=== PATIENT | female | born 1975 | race Caucasian/White ===

== ENCOUNTER 2025-06-11 12:58 | Inpatient (IN) ==
--- NOTE | 2025-06-11 14:36 | Emergency Department Note ---
History of Present Illness General Chief complaint: Leg Injury/Pain Stated complaint: L LEG SWELLING/POSSIBLY INFECTED Time Seen by Provider: 06/11/25 14:20 History of Present Illness Maximum Pain Intensity: 5 This is a 49-year-old female with a history of diabetes that presents to the emergency department via private vehicle with complaints of "left leg swollen, infection". The patient notes that for the past few days she has noted a wound to the left lateral ankle. She believes this developed after wearing new boots. She noted progressive swelling and redness to the area. Minimal pain. She denies any definitive trauma or injury. No fevers or chills. No nausea or vomiting. The patient notes that secondary to lack of medical insurance, she has not been able to take her medication. Home Medications Medication Instructions Recorded Confirmed Type Auto Titrating CPAP #1 ea 07/23/22 03/16/25 Rx CPAP Supplies #1 ea 07/23/22 03/16/25 Rx blood sugar diagnostic (Accu-Chek #100 ea 07/25/22 03/16/25 Rx SmartView Test Strips) blood-glucose meter (Accu-Chek #1 ea 07/25/22 03/16/25 Rx Guide Glucose Meter) lancets (Accu-Chek Fastclix Lancet #200 ea 07/25/22 03/16/25 Rx Drum) acetaminophen 500 mg capsule 1,000 mg PO Q6H PRN Pain 07/23/23 06/11/25 History cetirizine 10 mg capsule (Zyrtec) 10 mg PO DAILY PRN Allergy Symptoms 03/03/24 06/11/25 History FreeStyle Kwame 3 Sensor #2 ea 06/14/24 03/16/25 Rx (blood-glucose sensor) pen needle, diabetic 31 gauge x #100 ea 08/31/24 03/16/25 Rx 3/16" (Comfort EZ Pen [place]) empagliflozin 25 mg tablet 25 mg PO DAILY 06/11/25 06/11/25 History (Jardiance) fluoxetine 20 mg capsule 20 mg PO DAILY 06/11/25 06/11/25 History lisinopril 10 mg tablet 10 mg PO DAILY 06/11/25 06/11/25 History metformin 1,000 mg tablet 1,000 mg PO BID 06/11/25 06/11/25 History mirabegron 50 mg tablet,extended 50 mg PO DAILY 06/11/25 06/11/25 History release 24 hr propranolol 60 mg capsule,24 60 mg PO DAILY 06/11/25 06/11/25 History hr,extended release rosuvastatin 20 mg tablet 20 mg PO DAILY 06/11/25 06/11/25 History semaglutide 1 mg/dose (4 mg/3 mL) 1 mg subcut WK 06/11/25 06/11/25 History subcutaneous pen injector (Ozempic) Allergies Allergy/AdvReac Type Severity Reaction Status Date / Time No Known Allergies Allergy Verified 06/11/25 17:29 Past Med/Surg History Problem List (Updated 06/11/25 @ 17:46 by Benjy Marsh PA-C) Hyperglycemia (Acute) Cellulitis of left lower extremity (Acute) Persistent microalbuminuria associated with type 2 diabetes mellitus Obsessive thinking Attention deficit Tobacco dependence Leukocytosis Adhesive capsulitis of left shoulder Obesity (BMI 30-39.9) Hyperlipidemia Hypertension Diabetic nephropathy associated with type 2 diabetes mellitus Type 2 diabetes mellitus Partial tear subscapularis tendon Eczema of both external ears Joint pain Medical History (Updated 06/11/25 @ 17:46 by Benjy Marsh PA-C) SHARON (obstructive sleep apnea) Tendonitis of left rotator cuff Back pain Lumbar radiculopathy, acute Asthma Surgical History H/O wisdom tooth extraction Hx of removal of ovary Family History Mother Breast cancer Cancer H/O: hysterectomy Myocardial infarction Denies family history of Prostate cancer Colorectal cancer Social History Smoking Status: Never smoker Tobacco Type: Cigarettes Age Started Using Tobacco: 19; packs per day: 1; Cigarettes Per Day: 1PPD; Second Hand Exposure: Yes ( ); Do You Dip or Chew Tobacco: No; Hx Alcohol Use: Yes Alcohol Intake Frequency: Monthly or Less Alcohol Intake Frequency Comment: very social Hx Substance Use: No Preferred Language: Belgian Visual Impairment: Partially Limited Hearing Ability: Normal Senior Technologist Required: No Beliefs That Will Affect Care: None marital status: Current Living Situation: Family Current Living Situation Comment: , mother, two children current occupational status: employed 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), [employer]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) How many Children do You have: 3 Feels Safe at Home: Yes Childhood Exposure to Second-Hand Smoke: No Diet: diabetic Diet Comment: follows a diabetic diet caffeine: Yes during the past year weight has: remained stable Dental Care, Regularly: No Physical Activity Frequency: Does not Exercise Seatbelt Use: always Sunscreen Use: Yes Review of Systems A total of 10 systems reviewed and were otherwise negative Physical Exam Vital Signs Vital Signs - 24 hr 06/11/25 13:04 06/11/25 14:54 06/11/25 16:09 Temperature 36.8 C Temperature Source Temporal Artery Scan Pulse Rate 104 H 77 Pulse Rate [Apical] 83 Pulse Rate from SpO2 Sensor 76 Respiratory Rate 18 16 14 Respiratory Effort / Characteristics Non-Labored Spontaneous Respiratory Depth Normal Blood Pressure 134/78 Blood Pressure [Right Arm] 132/87 Blood Pressure Mean 96 Blood Pressure Mean [Right Arm] 102 Blood Pressure Position Sitting Pulse Oximetry 98 98 100 Oxygen Delivery Method Room Air Room Air Sepsis Recent Fever Within 48 Hours No Sepsis New/Unexplained Change in Mental Status No Sepsis Action Taken by Nursing No Action Required 06/11/25 16:12 06/11/25 16:21 06/11/25 16:30 Temperature Temperature Source Pulse Rate 75 76 75 Pulse Rate [Apical] Pulse Rate from SpO2 Sensor 75 79 75 Respiratory Rate 13 16 18 Respiratory Effort / Characteristics Respiratory Depth Blood Pressure Blood Pressure [Right Arm] Blood Pressure Mean Blood Pressure Mean [Right Arm] Blood Pressure Position Pulse Oximetry 99 100 98 Oxygen Delivery Method Sepsis Recent Fever Within 48 Hours Sepsis New/Unexplained Change in Mental Status Sepsis Action Taken by Nursing 06/11/25 16:42 06/11/25 16:51 Temperature Temperature Source Pulse Rate 84 79 Pulse Rate [Apical] Pulse Rate from SpO2 Sensor 82 78 Respiratory Rate 20 16 Respiratory Effort / Characteristics Respiratory Depth Blood Pressure 126/78 Blood Pressure [Right Arm] Blood Pressure Mean 94 Blood Pressure Mean [Right Arm] Blood Pressure Position Pulse Oximetry 97 96 Oxygen Delivery Method Sepsis Recent Fever Within 48 Hours Sepsis New/Unexplained Change in Mental Status Sepsis Action Taken by Nursing VITAL SIGNS - Vital signs and nursing notes were reviewed. Stable and afebrile. GENERAL -49-year-old female appearing her stated age who is in no acute distress. Communicates well with provider and answers questions appropriately. SKIN -circumferential edema noted throughout the left calf and left ankle area tracking into the left foot, predominantly on the dorsal aspect. There is darkened erythema noted overlying the left lateral malleolus/distal fibular region with a central ulcerated region and surrounding erythema. There is some mild streaking proximally. No crepitus. No fluctuance. HEAD - NC/AT. EYES - Sclera anicteric. NECK - No nuchal rigidity. LUNGS - CTA CARDIAC - RRR EXTREMITIES -skin as above. There is no crepitus or fluctuance. Left lower extremity appropriately warm and well-perfused. +5/5 strength noted in UE/LE bilaterally. NEUROLOGIC -sensory intact throughout the left lower extremity without deficit. PSYCH -alert, oriented and pleasant on exam Course Administered Medications Vancomycin HCl 2,000 mg/ (Sodium Chloride) 540 mls @ 200 mls/hr IV NOW ONE Stop: 06/11/25 18:19 Last Admin: 06/11/25 16:53 Dose: 200 mls/hr Documented By: FLO Discontinued Medications Cefepime HCl (Maxipime 2000mg) 2,000 mg in 20 mls @ 5 mls/min IV NOW STA; Protocol Stop: 06/11/25 15:41 Last Admin: 06/11/25 16:46 Dose: 5 mls/min Documented By: FLO Medical Decision Making Laboratory Data 06/11/25 14:50 06/11/25 14:50 Lab Results 06/11/25 Range/Units 14:50 WBC 10.30 (4.8-10.8) K/ul RBC 4.49 (4.20-5.40) M/uL Hgb 14.1 (12.0-16.0) g/dL Hct 41.4 (37.0-47.0) % MCV 92.2 (80.0-100.0) fL MCH 31.4 (25.0-34.0) pg MCHC 34.1 (32.0-36.0) g/dL RDW Std Deviation 42.0 (36.4-46.3) fL RDW Coeff of [place] 12.4 (11.5-14.5) % Plt Count 234 (130-400) K/uL MPV 11.3 (9.4-12.4) fL Immature Gran % (Auto) 0.6 % Neut % (Auto) 67.8 % Lymph % (Auto) 21.0 % Holt % (Auto) 8.3 % Eos % (Auto) 1.9 % Baso % (Auto) 0.4 % Neut # (Auto) 6.99 H (1.40-6.50) K/uL Lymph # (Auto) 2.16 (1.20-3.40) K/uL Holt # (Auto) 0.85 H (0.11-0.59) K/uL Eos # (Auto) 0.20 (0.00-0.50) K/uL Baso # (Auto) 0.04 (0.00-0.20) K/uL Immature Gran # (Auto) 0.06 (0.01-0.20) K/uL Sodium 136 (136-145) mmol/L Potassium 3.7 (3.5-5.1) mmol/L Chloride 102 (98-107) mmol/L Carbon Dioxide 29 (21-32) mmol/L Anion Gap 5 (3-11) BUN 11 (6-23) mg/dl Creatinine 0.46 L (0.6-1.2) mg/dl Est Cr Clr Drug Dosing 166.6 ml/min eGFR 117.24 BUN/Creatinine Ratio 23.9 H (10-20) Glucose 210 H (70-99(Fasting)) mg/dl Lactate 0.9 (0.4-2.0) mmol/L Calcium 9.6 (8.6-10.3) mg/dl Total Bilirubin 0.9 (0.2-1.0) mg/dl AST 12 L (13-39) U/L ALT 12 (7-52) U/L Alkaline Phosphatase 70 (34-104) U/L C-Reactive Protein 1.87 H (0-0.5) mg/dl Total Protein 7.1 (6.0-8.3) gm/dl Albumin 3.8 (3.4-5.0) gm/dl Globulin 3.3 (2.5-4.0) gm/dl Albumin/Globulin Ratio 1.2 (0.9-2) Procalcitonin < 0.02 (0-0.5) ng/ml Imaging Data Radiologist's Impression: Venous Doppler Study 06/11/25 14:34 Examination: Doppler venous ultrasound of the lower extremity Comparison: None Technique: Grayscale evaluation with compression, spectral flow, and color Doppler assessment of the deep venous system of the leg, from the groin to the knee, as well as the lower leg Findings: The external iliac, common femoral, femoral, popliteal, peroneal and anterior and posterior tibial veins demonstrate normal compressibility and blood flow. Impression: No evidence for DVT of the left lower extremity Electronically signed by Garfield Luna 06-11-2025 3:37 PM MDM Narrative Patient was seen and evaluated as above in room D01b. Review was performed of triage nursing notes and vital signs. After obtaining a thorough history and physical examination the above work up was performed. Patient presents to us today for what appears to be an infection to the left lateral ankle. There is no evidence of necrotizing fasciitis clinically. Options of care were discussed with the patient. IV access was established. Labs were drawn. EKG per my interpretation reveals normal sinus rhythm at a rate of 70 bpm. QTc 430. QRS 72. No ST elevation. There is no leukocytosis or concerning anemia. No evidence of emergent kidney or liver failure. Hyperglycemia 210. Procalcitonin within normal range. Blood culture and wound culture pending. Broad-spectrum IV cefepime plus IV vancomycin ordered for coverage of the suspected left lower extremity infection. Doppler study negative for DVT. Noting involvement, distribution and comorbidities I do believe that further evaluation and management in the inpatient setting is warranted. Case discussed with the hospitalist service. Please refer to further documentation regarding her stay. GCS: 15 In the evaluation and treatment of this patient the following differential diagnoses were entertained: Ulceration, foreign body, necrotizing fasciitis, cellulitis, abscess, among others Impression & Plan Cellulitis of left lower extremity, Hyperglycemia Discharge Plan Visit Data Chief Complaint: Leg Injury/Pain Stated Complaint: L LEG SWELLING/POSSIBLY INFECTED ED Provider: Jhonathan Chandra ED Midlevel Provider: Benjy Marsh Discharge Problem: Cellulitis of left lower extremity, Hyperglycemia Patient Disposition: Admitted As Inpatient Condition: Good Forms Stand Alone Forms: [employer] Prescriptions Prescriptions: No Action (DME) CPAP Supplies Misc See Rx Instructions .Route Qty: 1 0RF Rx Instructions: As directed (DME) Auto Titrating CPAP Misc See Rx Instructions .ROUTE .MEDSUPPLY Qty: 1 0RF Rx Instructions: As directed Nightly (DME) FreeStyle Kwame 3 Sensor Device See Rx Instructions .Route Qty: 2 11RF Rx Instructions: change sensor every 14 days acetaminophen 500 mg capsule 1,000 mg PO Q6H PRN (Reason: Pain) (DME) blood-glucose meter [Accu-Chek Guide Glucose Meter] Misc See Rx Instructions .Route Qty: 1 0RF Rx Instructions: Testing BS daily (DME) lancets [Accu-Chek Fastclix Lancet Drum] Misc See Rx Instructions .Route Qty: 200 0RF Rx Instructions: testing BS daily (DME) Accu-Chek SmartView Test Strip Strip See Rx Instructions .Route Qty: 100 3RF Rx Instructions: Testing BS daily Zyrtec 10 mg capsule 10 mg PO DAILY PRN (Reason: Allergy Symptoms) (DME) pen needle, diabetic [Comfort EZ Pen [place]] 31 gauge x 3/16" needle See Rx Instructions .Route Qty: 100 3RF Rx Instructions: As directed propranolol 60 mg capsule,extended release 24 hr 60 mg PO DAILY Patient Comments: 06/11- hasnt taking meds since March due to insurance metformin 1,000 mg tablet 1,000 mg PO BID Patient Comments: 06/11- hasnt taking meds since March due to insurance lisinopril 10 mg tablet 10 mg PO DAILY Patient Comments: 06/11- hasnt taking meds since March due to insurance fluoxetine 20 mg capsule 20 mg PO DAILY Patient Comments: 06/11- hasnt taking meds since March due to insurance rosuvastatin 20 mg tablet 20 mg PO DAILY Patient Comments: 06/11- hasnt taking meds since March due to insurance mirabegron 50 mg tablet extended release 24 hr 50 mg PO DAILY Patient Comments: 06/11- hasnt taking meds since March due to insurance Jardiance 25 mg tablet 25 mg PO DAILY Patient Comments: 06/11- hasnt taking meds since March due to insurance Ozempic 1 mg/dose (4 mg/3 mL) pen injector 1 mg SUBCUT WK Patient Comments: 06/11-hasnt taking meds since March due to no insurance Referrals Referrals: Jg Anna DO [Primary Care Provider] -
[2025-06-11 15:09] LABS: Hematocrit (blood only) 41.4 % (37.0-47.0); Hemoglobin 14.1 g/dL (12.0-16.0); Immature Granulocytes # (auto) 0.06 K/uL (0.01-0.20); Immature Granulocytes % (auto) 0.6 %; Mean Corpuscular Hemoglobin 31.4 pg (25.0-34.0); Mean Corpuscular Volume 92.2 fL (80.0-100.0); Platelet Count 234 K/uL (130-400); RDW Standard Deviation 42.0 fL (36.4-46.3); Red Blood Count 4.49 M/uL (4.20-5.40); White Blood Count 10.30 K/ul (4.8-10.8)
[2025-06-11 15:27] LABS: Alanine Aminotransferase 12.0 U/L (7-52); Albumin Globulin Ratio 1.2 (0.9-2); Albumin Level 3.8 gm/dl (3.4-5.0); Alkaline Phosphatase 70.0 U/L (34-104); Anion Gap 5.0 (3-11); Bilirubin,Total 0.9 mg/dl (0.2-1.0); Blood Urea Nitrogen 11.0 mg/dl (6-23); Calcium 9.6 mg/dl (8.6-10.3); Carbon Dioxide 29.0 mmol/L (21-32); Chloride 102.0 mmol/L (98-107); Creatinine Clr Calc Pharmacy 166.6 ml/min; Globulin 3.3 gm/dl (2.5-4.0); Glucose 210.0 mg/dl (70-99(Fasting)); Potassium 3.7 mmol/L (3.5-5.1); Sodium 136.0 mmol/L (136-145); Total Protein 7.1 gm/dl (6.0-8.3)
[2025-06-11] MEDS ORDERED: VANCOMYCIN CONSULT ACTIVE PRN (15:38)
--- NOTE | 2025-06-11 15:38 | Ultrasound Report ---
Examination: Doppler venous ultrasound of the lower extremity Comparison: None Technique: Grayscale evaluation with compression, spectral flow, and color Doppler assessment of the deep venous system of the leg, from the groin to the knee, as well as the lower leg Findings: The external iliac, common femoral, femoral, popliteal, peroneal and anterior and posterior tibial veins demonstrate normal compressibility and blood flow. Impression: No evidence for DVT of the left lower extremity Electronically signed by Garfield Luna 06-11-2025 3:37 PM
[2025-06-11] MEDS: CEFEPIME 2000MG 2,000 MG/20 ML SYR IV STA (16:46)
[2025-06-11] MEDS: VANCOMYCIN HCL 2,000 MG in SODIUM CHLORIDE 0.9% 500 ML IV ONE (16:53)
--- NOTE | 2025-06-11 16:59 | History & Physical Report ---
Date of Service June 11, 2025 Assessment & Plan (1) Failure to thrive in adult: (2) Cellulitis of left lower extremity: (3) Uncontrolled diabetes mellitus with hyperglycemia: (4) Tobacco dependence: (5) SHARON (obstructive sleep apnea): Plan This patient is a 49-year-old female who presented on 06/11 for worsening left ankle swelling/erythema. She denies ambulatory dysfunction or left ankle/foot pain at time of admission. 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; thus, cannot call as a failure of outpatient antibiotics LLE venous Doppler revealed no evidence of acute DVT At time of admission, patient is not septic (VSS) No leukocytosis; afebrile CRP mildly elevated at 1.67 She does not meet red flag criteria for further IV antibiotic: Not septic, no suspected deep tissue/joint involvement affecting mobility, no concerns for compartment syndrome, no intractable pain, no lymphangitic stranding up the leg, progression of erythema has been gradual, she does not have a known history of MRSA colonization or infection However, purulent drainage from the lesion, thus will cover for MRSA: Doxycycline 100 mg p.o. BID Cephalexin 500 mg p.o. QID #Uncontrolled diabetes Glucose elevated at 210 on arrival Reinitiated metformin Last A1c 7.2% on 04/14 Repeat A1c ordered, pending kaiako kohanga reo consult appreciated #Tobacco dependence Current everyday tobacco cigarette smoker; half PPD Continue to encourage cessation #HTN Restart lisinopril Will defer restarting propranolol, as BP normotensive so far this admission #HLD Restart rosuvastatin #Obsessive thinking | attention deficit Restart fluoxetine #H/o SHARON Non-compliance with home CPAP as patient reports she does not tolerate Disposition: Obs - MedSurg; hopeful discharge on 06/12 While I do not feel that patient requires admission for IV antibiotics for her cellulitic infection, I do have concerns regarding her uncontrolled diabetes, and the likelihood that she should develop diabetic foot/ankle ulcers & recurrent cellulitic infections if her glucose remains unchecked. I broached this topic with patient at bedside. Patient expresses a desire for additional resources regarding financial business analyst, diabetic medication, as well as speaking with the wreath maker tomorrow morning. VTE PPx: Low risk, encourage ambulation History of Present Illness Chief Complaint: Left ankle cellulitis, diabetes, FTT Primary Care Provider: Jg Anna DO Mrs. Rogers is a 49-year-old female with PMH of T2DM, obsessive thinking, attention deficit, tobacco dependence, obesity, HTN, and HLD. She presented on 06/11 for swelling and redness in her left ankle x 5 days. Patient's redness and swelling originally began on Wednesday 06/06 and has progressively worsened. She denies any pain in her left ankle. She does not have difficulty walking on her left ankle. No prior history of DVTs, not on blood thinners. She reports that a lesion developed on her lateral malleolus that later burst on Saturday 06/09; at that time there was some puslike drainage, but since that time she has only had a weeping/clear drainage. Additionally, she denies prior history of MRSA infections. Patient denies any pain, or redness/streaking going up her leg. Of note, patient is a diabetic but has not been taking her medications over the past 2 months due to insurance/financial issues. Patient is a current everyday tobacco cigarette smoker; half PPD. Patient denies any recent alcohol use. NKDA. Patient has not been trialed on oral antibiotics for her ankle. She does have a history of boils on her body for which she is taking cefdinir and doxycycline, and reports no adverse reactions to taking these medications. Additionally, patient has a CPAP at home, but does not use it as she does not tolerate it. Vital stable at time of admission consult: 122/71, 77 bpm, 96% on room air, temperature 36.8 C. ED course: Vancomycin 2000 mg IV Cefepime 2000 mg IV ROS: Patient endorses redness/swelling in the left ankle Patient denies fever, chills, night-sweats, chest pain, SOB, abdominal pain, N/V/D, pain in the left ankle, or numbness/tingling in the left foot. Allergies Allergy/AdvReac Type Severity Reaction Status Date / Time No Known Allergies Allergy Verified 06/11/25 17:29 Home Medications Medication Instructions Recorded Confirmed Type Auto Titrating CPAP #1 ea 07/23/22 03/16/25 Rx CPAP Supplies #1 ea 07/23/22 03/16/25 Rx blood sugar diagnostic (Accu-Chek #100 ea 07/25/22 03/16/25 Rx SmartView Test Strips) blood-glucose meter (Accu-Chek #1 ea 07/25/22 03/16/25 Rx Guide Glucose Meter) lancets (Accu-Chek Fastclix Lancet #200 ea 07/25/22 03/16/25 Rx Drum) acetaminophen 500 mg capsule 1,000 mg PO Q6H PRN Pain 07/23/23 06/11/25 History cetirizine 10 mg capsule (Zyrtec) 10 mg PO DAILY PRN Allergy Symptoms 03/03/24 06/11/25 History FreeStyle [place] 3 Sensor #2 ea 06/14/24 03/16/25 Rx (blood-glucose sensor) pen needle, diabetic 31 gauge x #100 ea 08/31/24 03/16/25 Rx 3/16" (Comfort EZ Pen [place]) empagliflozin 25 mg tablet 25 mg PO DAILY 06/11/25 06/11/25 History (Jardiance) fluoxetine 20 mg capsule 20 mg PO DAILY 06/11/25 06/11/25 History lisinopril 10 mg tablet 10 mg PO DAILY 06/11/25 06/11/25 History metformin 1,000 mg tablet 1,000 mg PO BID 06/11/25 06/11/25 History mirabegron 50 mg tablet,extended 50 mg PO DAILY 06/11/25 06/11/25 History release 24 hr propranolol 60 mg capsule,24 60 mg PO DAILY 06/11/25 06/11/25 History hr,extended release rosuvastatin 20 mg tablet 20 mg PO DAILY 06/11/25 06/11/25 History semaglutide 1 mg/dose (4 mg/3 mL) 1 mg subcut WK 06/11/25 06/11/25 History subcutaneous pen injector (Ozempic) Past Med/Surg History Problem List (Updated 06/11/25 @ 20:33 by Andres Biggs PA-C) Failure to thrive in adult Uncontrolled diabetes mellitus with hyperglycemia SHARON (obstructive sleep apnea) Hyperglycemia (Acute) Cellulitis of left lower extremity (Acute) Persistent microalbuminuria associated with type 2 diabetes mellitus Obsessive thinking Attention deficit Tobacco dependence Leukocytosis Adhesive capsulitis of left shoulder Obesity (BMI 30-39.9) Hyperlipidemia Hypertension Diabetic nephropathy associated with type 2 diabetes mellitus Type 2 diabetes mellitus Partial tear subscapularis tendon Eczema of both external ears Joint pain Medical History (Updated 06/11/25 @ 20:33 by Andres Biggs PA-C) Tendonitis of left rotator cuff Back pain Lumbar radiculopathy, acute Asthma Surgical History H/O wisdom tooth extraction Hx of removal of ovary Family History Mother Breast cancer Cancer H/O: hysterectomy Myocardial infarction Denies family history of Prostate cancer Colorectal cancer Social History Smoking Status: Current every day smoker Tobacco Type: Cigarettes Age Started Using Tobacco: 19; packs per day: 1; Cigarettes Per Day: 1PPD; Second Hand Exposure: Yes; Do You Dip or Chew Tobacco: No; Tobacco Cessation Education Requested by Patient: No Hx Alcohol Use: Yes Alcohol Intake Frequency: Monthly or Less Alcohol Intake Frequency Comment: very social Hx Substance Use: No Preferred Language: Citizen [place] Communication Ability: Effective Visual Impairment: Partially Limited Hearing Ability: Normal Cabinet Assembler Required: No Beliefs That Will Affect Care: None marital status: Current Living Situation: Spouse Current Living Situation Comment: , mother, two children current occupational status: employed 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), [employer]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) How many Children do You have: 3 Other Information That Helps Us Care for You: No Feels Safe at Home: Yes Safety Concerns: Feels Safe At This Time Childhood Exposure to Second-Hand Smoke: No Diet: diabetic Diet Comment: follows a diabetic diet caffeine: Yes during the past year weight has: remained stable Dental Care, Regularly: No Physical Activity Frequency: Does not Exercise Seatbelt Use: always Sunscreen Use: Yes Assistive Devices: Hospital Bed Review of Systems 2 Review of Systems: See HPI above Physical Exam 2 Physical Exam: General: no acute distress; at bedside; laughing and joking in the room; non-toxic appearing; cooperative; SpO2 96% on RA HEENT: normocephalic, atraumatic; PERRLA; vision and hearing intact Neck: supple; trachea midline Skin: warm, dry without signs of tenting; no cyanosis; no rashes, bruising, lesions, or erythema noted CV: chest wall NTP; RRR; S1/S2 normal; no murmurs/rubs/gallops; pulses intact and symmetric at radial, DP, and PT Lungs: no acute respiratory distress; symmetrical chest wall expansion; clear breath sounds across all lung sam w/o adventitious sounds; no wheezing ABD: Soft, NTP; BS present; no rebound/guarding; no distention MSK: no tics or fasciculations; no edema noted in the LEs b/l, nonerythematous Left ankle: Patient exhibits a 1 cm in diameter lesion on her left lateral malleolus (see photos below); erythema extends around the lesion by an additional centimeter; erythema extends on the dorsal aspect of her left foot and ankle, but not circumferentially; it is not warm to touch; it is mildly TTP Neuro: A&Ox3; normal mood and affect; fluent speech; patient reports sensation is intact and symmetric in the lower extremities bilaterally assessed via light touch at the toes Results & Data Results & Data Vital Signs (Past 12 Hours) Vital Signs Temp Pulse Pulse Resp BP BP Pulse Ox 06/11/25 14:54 83 16 132/87 98 06/11/25 13:04 36.8 C 104 H 18 134/78 98 O2 Del Method 06/11/25 14:54 Room Air 06/11/25 13:04 Room Air Laboratory Results Abnormal lab results 06/11/25 Range/Units 14:50 Neut # (Auto) 6.99 H (1.40-6.50) K/uL [place] # (Auto) 0.85 H (0.11-0.59) K/uL Creatinine 0.46 L (0.6-1.2) mg/dl BUN/Creatinine Ratio 23.9 H (10-20) Glucose 210 H (70-99(Fasting)) mg/dl AST 12 L (13-39) U/L C-Reactive Protein 1.87 H (0-0.5) mg/dl Diagnostic Findings Venous Doppler Study 06/11/25 14:34 Examination: Doppler venous ultrasound of the lower extremity Comparison: None Technique: Grayscale evaluation with compression, spectral flow, and color Doppler assessment of the deep venous system of the leg, from the groin to the knee, as well as the lower leg Findings: The external iliac, common femoral, femoral, popliteal, peroneal and anterior and posterior tibial veins demonstrate normal compressibility and blood flow. Impression: No evidence for DVT of the left lower extremity Electronically signed by Garfield Luna 06-11-2025 3:37 PM Code Status & VTE Plan Code Status Full code VTE Prophylaxis Plan VTE Prophylaxis will be ordered: No Supervising Physician Co-Signing Physician Notes Attending Attestation & Admit Note: Pt seen/examined, chart reviewed, care plan d/w ILDEFONSO Biggs. I agree w/ the connor components of his admit documentation. 49yo female with T2DM, Hyperlipidemia, HTN, and tobacco use who presents with 5 days of erythema and swelling of left lateral ankle/distal left leg with a central pustule that started draining a few days ago and continues to drain. She has had no systemic symptoms - no fevers, no rigors. PMH/PSH/allergies/meds/sochx - reviewed VSS, afebrile gen - obese, NAD, nontoxic mouth - MMM heart - RRR, s1 s2, no murmur lungs - CTA b/l abd - soft NT ND BS+ ext - generalized edema of distal LLE and ankle; full passive ROM of L ankle without pain/tenderness; pulses b/l feet 2+ skin - just superior to the left ankle is a central pustule with surrounding swelling/induration/erythema (see photo); I cannot appreciate a defined abscess in this area; there is gross swelling about the entire distal LLE and ankle labs reviewed (normal WBCs) LLE doppler neg for DVT A/P: 1. LLE cellulitis - with purulent drainage - likely staph -s/p rocephin/vanco in ER -can continue both then likely transition to PO abx next 1-2 days -wound cx sent/pending -follow blood cx's 2. T2DM - -await a1c -agree with iglesia lucio -bsgs ac/hs 3. HTN - -cont home BP meds observation status for now Odin Damico MD PG Care Time/CCT Total # of Minutes Spent Total Time Spent with Patient: Total time spent is greater than 50% in coordination of care (as documented) at patient's floor/unit and/or counseling patient: Coding [place] [address] INT INP/OBS CARE 2MIN Patient Type Established Medical Decision Making High Complexity Diagnoses Failure to thrive in adult R62.7 Cellulitis of left lower extremity L03.116 Uncontrolled diabetes mellitus with hyperglycemia E11.65 Tobacco dependence F17.200 SHARON (obstructive sleep apnea) G47.33
--- NOTE | 2025-06-11 18:49 | Hospitalist Consultation ---
Date of Consultation June 11, 2025 History of Present Illness Reason for Consultation: Consult for medical admission Requesting Physician: Benjy Marsh PA-C Attending Physician: Jhonathan Chandra MD History of Present Illness Mrs. Rogers is a 49-year-old female with PMH of T2DM, obsessive thinking, attention deficit, tobacco dependence, obesity, HTN, and HLD. She presented on 06/11 for swelling and redness in her left ankle x 5 days. Patient's redness and swelling originally began on Wednesday 06/06 and has progressively worsened. She denies any pain in her left ankle. She does not have difficulty walking on her left ankle. No prior history of DVTs, not on blood thinners. She reports that a lesion developed on her lateral malleolus that later burst on Saturday 06/09; at that time there was some puslike drainage, but since that time she has only had a weeping/clear drainage. Additionally, she denies prior history of MRSA infections. Patient denies any pain, or redness/streaking going up her leg. Of note, patient is a diabetic but has not been taking her medications over the past 2 months due to insurance/financial issues. Patient is a current everyday tobacco cigarette smoker; half PPD. Patient denies any recent alcohol use. NKDA. Patient has not been trialed on oral antibiotics for her ankle. She does have a history of boils on her body for which she is taking cefdinir and doxycycline, and reports no adverse reactions to taking these medications. Additionally, patient has a CPAP at home, but does not use it as she does not tolerate it. Vital stable at time of admission consult: 122/71, 77 bpm, 96% on room air, temperature 36.8 C. ED course: Vancomycin 2000 mg IV Cefepime 2000 mg IV ROS: Patient endorses redness/swelling in the left ankle Patient denies fever, chills, night-sweats, chest pain, SOB, abdominal pain, N/V/D, pain in the left ankle, or numbness/tingling in the left foot. Allergies Allergy/AdvReac Type Severity Reaction Status Date / Time No Known Allergies Allergy Verified 06/11/25 17:29 Home Medications Medication Instructions Recorded Confirmed Type Auto Titrating CPAP #1 ea 07/23/22 03/16/25 Rx CPAP Supplies #1 ea 07/23/22 03/16/25 Rx blood sugar diagnostic (Accu-Chek #100 ea 07/25/22 03/16/25 Rx SmartView Test Strips) blood-glucose meter (Accu-Chek #1 ea 07/25/22 03/16/25 Rx Guide Glucose Meter) lancets (Accu-Chek Fastclix Lancet #200 ea 07/25/22 03/16/25 Rx Drum) acetaminophen 500 mg capsule 1,000 mg PO Q6H PRN Pain 07/23/23 06/11/25 History cetirizine 10 mg capsule (Zyrtec) 10 mg PO DAILY PRN Allergy Symptoms 03/03/24 06/11/25 History FreeStyle [place] 3 Sensor #2 ea 06/14/24 03/16/25 Rx (blood-glucose sensor) pen needle, diabetic 31 gauge x #100 ea 08/31/24 03/16/25 Rx 3/16" (Comfort EZ Pen [place]) empagliflozin 25 mg tablet 25 mg PO DAILY 06/11/25 06/11/25 History (Jardiance) fluoxetine 20 mg capsule 20 mg PO DAILY 06/11/25 06/11/25 History lisinopril 10 mg tablet 10 mg PO DAILY 06/11/25 06/11/25 History metformin 1,000 mg tablet 1,000 mg PO BID 06/11/25 06/11/25 History mirabegron 50 mg tablet,extended 50 mg PO DAILY 06/11/25 06/11/25 History release 24 hr propranolol 60 mg capsule,24 60 mg PO DAILY 06/11/25 06/11/25 History hr,extended release rosuvastatin 20 mg tablet 20 mg PO DAILY 06/11/25 06/11/25 History semaglutide 1 mg/dose (4 mg/3 mL) 1 mg subcut WK 06/11/25 06/11/25 History subcutaneous pen injector (Ozempic) Patient History Medical History (Updated 06/11/25 @ 17:46 by Benjy Marsh PA-C) SHARON (obstructive sleep apnea) Tendonitis of left rotator cuff Back pain Lumbar radiculopathy, acute Asthma Surgical History H/O wisdom tooth extraction Hx of removal of ovary Family History Mother Breast cancer Cancer H/O: hysterectomy Myocardial infarction Denies family history of Prostate cancer Colorectal cancer Social History Smoking Status: Never smoker Tobacco Type: Cigarettes Age Started Using Tobacco: 19; packs per day: 1; Cigarettes Per Day: 1PPD; Second Hand Exposure: Yes ( ); Do You Dip or Chew Tobacco: No; Hx Alcohol Use: Yes Alcohol Intake Frequency: Monthly or Less Alcohol Intake Frequency Comment: very social Hx Substance Use: No Preferred Language: Hungarian Visual Impairment: Partially Limited Hearing Ability: Normal Column Precaster Required: No Beliefs That Will Affect Care: None marital status: Current Living Situation: Family Current Living Situation Comment: , mother, two children current occupational status: employed 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), [employer]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) How many Children do You have: 3 Feels Safe at Home: Yes Childhood Exposure to Second-Hand Smoke: No Diet: diabetic Diet Comment: follows a diabetic diet caffeine: Yes during the past year weight has: remained stable Dental Care, Regularly: No Physical Activity Frequency: Does not Exercise Seatbelt Use: always Sunscreen Use: Yes Review of Systems 2 Review of Systems: See HPI above Physical Exam 2 Physical Exam: General: no acute distress; at bedside; laughing and joking in the room; non-toxic appearing; cooperative HEENT: normocephalic, atraumatic; PERRLA; vision and hearing intact Neck: supple; trachea midline Skin: warm, dry without signs of tenting; no cyanosis; no rashes, bruising, lesions, or erythema noted CV: chest wall NTP; RRR; S1/S2 normal; no murmurs/rubs/gallops; pulses intact and symmetric at radial, DP, and PT Lungs: no acute respiratory distress; symmetrical chest wall expansion; clear breath sounds across all lung sam w/o adventitious sounds; no wheezing ABD: Soft, NTP; BS present; no rebound/guarding; no distention MSK: no tics or fasciculations; no edema noted in the LEs b/l, nonerythematous Left ankle: Patient exhibits a 1 cm in diameter lesion on her left lateral malleolus (see photos below); erythema extends around the lesion by an additional centimeter; erythema extends on the dorsal aspect of her left foot and ankle, but not circumferentially; it is not warm to touch; it is mildly TTP Neuro: A&Ox3; normal mood and affect; fluent speech; patient reports sensation is intact and symmetric in the lower extremities bilaterally assessed via light touch at the toes Results & Data Results & Data Vital Signs (Past 12 Hours) Vital Signs Temp Pulse Pulse Resp BP BP Pulse Ox 06/11/25 18:21 82 16 96 06/11/25 18:15 81 15 98 06/11/25 18:15 97/69 L 06/11/25 18:15 97/69 L 06/11/25 18:15 97/69 L 06/11/25 18:15 97/69 L 06/11/25 18:15 97/69 L 06/11/25 17:51 77 15 99 06/11/25 17:42 83 16 97 06/11/25 17:30 77 14 97 06/11/25 17:21 78 12 97 06/11/25 17:12 82 19 97 06/11/25 17:00 122/71 06/11/25 17:00 122/71 06/11/25 17:00 122/71 06/11/25 17:00 122/71 06/11/25 17:00 122/71 06/11/25 17:00 81 15 97 06/11/25 16:51 79 16 126/78 96 06/11/25 16:42 84 20 97 06/11/25 16:30 75 18 98 06/11/25 16:21 76 16 100 06/11/25 16:12 75 13 99 06/11/25 16:09 77 14 100 06/11/25 14:54 83 16 132/87 98 06/11/25 13:04 36.8 C 104 H 18 134/78 98 O2 Del Method 06/11/25 18:21 06/11/25 18:15 06/11/25 18:15 06/11/25 18:15 06/11/25 18:15 06/11/25 18:15 06/11/25 18:15 06/11/25 17:51 06/11/25 17:42 06/11/25 17:30 06/11/25 17:21 06/11/25 17:12 06/11/25 17:00 06/11/25 17:00 06/11/25 17:00 06/11/25 17:00 06/11/25 17:00 06/11/25 17:00 06/11/25 16:51 06/11/25 16:42 06/11/25 16:30 06/11/25 16:21 06/11/25 16:12 06/11/25 16:09 06/11/25 14:54 Room Air 06/11/25 13:04 Room Air PG Care Time/CCT Total # of Minutes Spent Total Time Spent with Patient: Total time spent is greater than 50% in coordination of care (as documented) at patient's floor/unit and/or counseling patient: Coding
[2025-06-11] MEDS ORDERED: DEXTROSE 50% 50 ML SYRINGE IV PRN (21:08)
[2025-06-11] MEDS ORDERED: GLUCAGON FOR INJ 1 MG VIAL SQ PRN (21:08)
[2025-06-11] MEDS ORDERED: GLUCOSE 10 TAB/TUBE PO PRN (21:08)
[2025-06-11] MEDS ORDERED: MELATONIN 3 MG TAB PO PRN (21:08)
[2025-06-11] MEDS ORDERED: CARBOHYDRATES FOR HYPOGLYCEMIA PO PRN (21:08)
[2025-06-11] MEDS ORDERED: ACETAMINOPHEN 325 MG TAB PO PRN (21:08)
[2025-06-11] MEDS ORDERED: GLUCOSE 40% GEL 15 GM TUBE PO PRN (21:08)
[2025-06-12 07:47] LABS: Hemoglobin A1C 6.3 % (4.5-5.6)
[2025-06-12] MEDS: DOXYCYCLINE HYCLATE 100 MG CAP PO SCH (08:26)
[2025-06-12] MEDS: ROSUVASTATIN CALCIUM 20 MG TAB PO SCH (08:27)
[2025-06-12 13:46] LABS: A calco-baum cmplx NotReported Not Detected (NotDetected); Bact fragilis Not Reported Not Detected (NotDetected); Blood Culture Id Panel See PCR Comment (NotDetected); C auris Not Reported Not Detected (NotDetected); Calbicans Not Reported Not Detected (NotDetected); Candida glabrata Not Reported Not Detected (NotDetected); Candida krusei Not Reported Not Detected (NotDetected); Cneoformans/gatti Not Reported Not Detected (NotDetected); Cparapsilosis Not Reported Not Detected (NotDetected); Ctropicalis Not Reported Not Detected (NotDetected); E cloacae compx Not Reported Not Detected (NotDetected); Efaecalis Not Reported Not Detected (NotDetected); Efaecium Not Reported Not Detected (NotDetected); Enterobacterales Not Reported Not Detected (NotDetected); Escherichia coli Not Reported Not Detected (NotDetected); H influenzae Not Reported Not Detected (NotDetected); K aerogenes Not Reported Not Detected (NotDetected); Koxytoca Not Reported Not Detected (NotDetected); Kpneumoniae grp Not Reported Not Detected (NotDetected); Lmonocyt Not Reported Not Detected (NotDetected); N meningitidis Not Reported Not Detected (NotDetected); P aeruginosa Not Reported Not Detected (NotDetected); Proteus spp Not Reported Not Detected (NotDetected); Salmonella spp Not Reported Not Detected (NotDetected); Staph lugdunensis Not Reported Not Detected (NotDetected); Staph spp. Not Reported DETECTED (NotDetected); Staphaureus Not Reported Not Detected (NotDetected); Staphepi Not Reported Not Detected (NotDetected); Stenmaltophilia Not Reported Not Detected (NotDetected); Strep agal(GrpB) Not Reported Not Detected (NotDetected); Strep pneum Not Reported Not Detected (NotDetected); Strep pyog (GrpA) Not Reported Not Detected (NotDetected); Strep spp Not Reported Not Detected (NotDetected)
[2025-06-12 14:01] LABS: Staphylococcus spp. DETECTED (NotDetected)
[2025-06-12] MEDS: OPTIRAY 320 100ml IV ONE (16:09)
--- NOTE | 2025-06-12 16:54 | Hospitalist Progress Note ---
"Date of Service June 12, 2025 Assessment & Plan (1) Failure to thrive in adult: (2) Cellulitis of left lower extremity: (3) Uncontrolled diabetes mellitus with hyperglycemia: (4) Tobacco dependence: (5) SHARON (obstructive sleep apnea): Plan This patient is a 49-year-old female who presented on 06/11 for worsening left ankle swelling/erythema. She denies ambulatory dysfunction or left ankle/foot pain at time of admission. #Left lower extremity cellulitis -Blood cultures with 1 set of gram + clusters, possible contaminant? Patient hemodynamically stable at this time -Vancomycin 2000 mg IV + cefepime 2000 IV given in the ED -LLE venous Doppler revealed no evidence of acute DVT -At time of admission, patient is not septic (VSS) -No leukocytosis; afebrile -CRP mildly elevated at 1.67, trend -no hx of MRSA infection -CT of left foot/ankle w/wo contrast with possible early osteo -d/c oral Keflex, oral Doxy -pharm consult for re-initiation of Vancomycin -MRI left foot/ankle d/t concerns with osteo #Failure to thrive -Patient reports she stopped taking all medications in April 2025 due to insurance/financial issues Case management consult appreciated for [employer] consultant/resources, patient suppled with multiple medication vouchers for d/c #T2DM -Glucose elevated at 210 on arrival -Reinitiated metformin on admission, now held in setting of CT IV contrast -A1c 6.3 -development educator consult appreciated #Tobacco dependence -Current everyday tobacco cigarette smoker; half PPD -Continue to encourage cessation -nicotine patch #HTN -hold ACEi in setting of recent CT with IV contrast #HLD -rosuvastatin #Obsessive thinking | attention deficit -fluoxetine #H/o SHARON Non-compliance with home CPAP as patient reports she does not tolerate DVT prophylaxis: up ad giovanni Diet: CC Disposition: pending further testing Admission and Anticipated Discharge Date Admission Date: June 11, 2025 Subjective Patient has no major complaints. Is able to bear weight on left foot. Reports her swelling and redness started when she started wearing a new pair of boots which caused skin breakdown to the left lateral aspect of ankle with surrounding redness into the left foot. Reports she had [employer] insurance but has not been able to make the monthly payment as her job hours have been inconsistent. Has not taken her routine medication since sometime in April. Review of Systems Review of Systems: All systems reviewed & are unremarkable except as noted in Subjective Physical Exam Physical Exam: GENERAL APPEARANCE: A&O. Sitting comfortably in bed. NAD. SKIN: Normal color without rashes or lesions. Normal turgor. HEENT: Head AT/NC. Buccal mucosa is moist and pink. NECK: No jugular venous distention. No thyroid enlargement. There is no lymphadenopathy. HEART: RRR without m/g/r. LUNGS: Normal inspiratory effort. CTA without w/r/r. ABDOMEN: No guarding or rigidity. Normoactive BS in all four quadrants. Abdomen soft and NT. MSK: No bony gross/deformities throughout. ROM intact. EXTREMITIES: No edema, No peripheral cyanosis. Left lateral aspect of ankle with dime-sized scabbed area with surrounding erythema and swelling extending into left foot. Circled marking to area has not extended beyond initial marking on admission. Neuro: CN 2-12 grossly intact. No focal neuro deficits PSYCHIATRIC: Normal affect. Eye contact is good. Speech is normal rate and content. Responses are appropriate. Results & Data Results & Data Vital Signs (Past 12 Hours) Vital Signs Temp Pulse Pulse Resp BP Pulse Ox O2 Del Method 06/12/25 16:19 36.8 C 80 16 127/84 97 Room Air 06/12/25 08:05 36.7 C 84 16 124/82 97 Room Air Laboratory Results Labs reviewed: None reviewed PG Care Time/CCT Total # of Minutes Spent Total Time Spent with Patient: Total time spent is greater than 50% in coordination of care (as documented) at patient's floor/unit and/or counseling patient: Coding Level of Care Code 81493 SUB INP/OBS CARE 2/35MIN Diagnoses Failure to thrive in adult R62.7 Cellulitis of left lower extremity L03.116 Uncontrolled diabetes mellitus with hyperglycemia E11.65 Tobacco dependence F17.200 SHARON (obstructive sleep apnea) G47.33"
--- NOTE | 2025-06-12 17:02 | CT Scan Report ---
CT LEFT FOOT AND LEFT ANKLE WITH and WITHOUT CONTRAST: HISTORY: Pain. TECHNIQUE: CT of the left foot and the left ankle was obtained with and without intravenous contrast. Coronal and sagittal reformats were created. IV CONTRAST: 100 mL of OMNIPAQUE 300 COMPARISON: None. FINDINGS: Small cortical defect in the superior margin of the cuboid (series 302, image 59). Diffuse soft tissue swelling with subcutaneous edema and fluid. No organized/drainable fluid collection is identified. Questionable subtle erosive changes in the heads of the hallux and fifth digit metatarsals abutting soft tissue swelling. IMPRESSION: Diffuse soft tissue swelling with subcutaneous edema and fluid. No organized/drainable fluid collection is identified. Questionable subtle erosive changes in the heads of the hallux and fifth digit metatarsals abutting soft tissue swelling. In a proper clinical context, early osteomyelitis could be a consideration Small cortical defect in the superior margin of the cuboid that likely represents an age-indeterminate avulsion injury. Recommend correlation with site of pain. Electronically signed by Kalin Tompkins 06-12-2025 5:01 PM
[2025-06-12] MEDS ORDERED: VANCOMYCIN CONSULT ACTIVE PRN (17:29)
[2025-06-12] MEDS: VANCOMYCIN HCL 1,500 MG in SODIUM CHLORIDE 0.9% 500 ML IV SCH (18:19)
[2025-06-12] MEDS ORDERED: NICOTINE 14 MG/24 HR PATCH TD SCH (19:30)
[2025-06-12] MEDS: REMOVE NICODERM PATCH SCH (19:40)
--- NOTE | 2025-06-12 21:08 | Magnetic Resonance Report ---
Exam(s): MRI LEFT ANKLE Without Contrast EXAM: MR Left Lower Extremity Without Intravenous Contrast, Ankle CLINICAL HISTORY: Reason for exam: possible osteo. TECHNIQUE: Multiplanar magnetic resonance images of the left ankle without intravenous contrast. COMPARISON: CT 06/12/2025. FINDINGS: LIGAMENTS: Anterior talofibular: Unremarkable. Posterior talofibular: Unremarkable. Anterior tibiofibular: Unremarkable. Posterior tibiofibular: Unremarkable. Calcaneofibular: Unremarkable. Deltoid: Unremarkable. Spring: Unremarkable. Lisfranc: Unremarkable. TENDONS: Achilles: Unremarkable. Flexor: Unremarkable. Extensor: Unremarkable. Peroneal: Split tearing of the peroneus brevis tendon. Tibialis anterior: Unremarkable. Tibialis posterior: Unremarkable. Muscles: Unremarkable. Fluid: No fluid collection. No joint effusion. Sinus tarsi: Unremarkable. Tarsal tunnel: Unremarkable. Plantar fascia: Unremarkable. Cartilage: Unremarkable. Bones/joints: No evidence of acute osteomyelitis. No acute fracture. Soft tissues: Diffuse subcutaneous soft tissue edema consistent with venous insufficiency or cellulitis. IMPRESSION: 1. No evidence of acute osteomyelitis. 2. Diffuse subcutaneous soft tissue edema consistent with venous insufficiency or cellulitis. 3. Split tear of the peroneus brevis tendon. Electronically signed by: Yordan Villa MD 06/12/25 21:07 PM
[2025-06-12] MEDS: NICOTINE 14 MG/24 HR PATCH TD SCH (21:16)
[2025-06-12] MEDS: INSULIN ASPART PER UNIT CHARGE SC SCH (21:24)
--- NOTE | 2025-06-12 21:33 | Magnetic Resonance Report ---
Exam(s): MRI LEFT FOOT Without Contrast EXAM: MR Left Lower Extremity Without Intravenous Contrast, Foot CLINICAL HISTORY: Reason for exam: possible osteo. TECHNIQUE: Multiplanar magnetic resonance images of the left foot without intravenous contrast. COMPARISON: CT foot 06/12/2025 FINDINGS: LIGAMENTS: Lisfranc: Unremarkable. TENDONS: Flexor: Unremarkable. Extensor: Unremarkable. Muscles: Unremarkable. Fluid: Unremarkable. No joint effusion. Cartilage: No high-grade cartilage loss. Bones/joints: No evidence of acute osteomyelitis. Mild signal changes of the 5th metatarsal head consistent with reactive osteitis. Soft tissues: Subcutaneous soft tissue edema. No fluid collection or soft tissue gas. Developing soft tissue pressure lesion adjacent to the 5th metatarsal head. IMPRESSION: 1. No evidence of acute osteomyelitis. 2. Mild signal changes in the 5th metatarsal head consistent with reactive osteitis. 3. Subcutaneous soft tissue edema without fluid collection or gas. 4. Developing soft tissue pressure lesion adjacent to the 5th metatarsal head. Electronically signed by: Yordan Villa MD 06/12/25 21:32 PM
[2025-06-13 07:11] LABS: Hematocrit (blood only) 38.7 % (37.0-47.0); Hemoglobin 13.2 g/dL (12.0-16.0); Immature Granulocytes # (auto) 0.06 K/uL (0.01-0.20); Immature Granulocytes % (auto) 0.6 %; Mean Corpuscular Hemoglobin 31.6 pg (25.0-34.0); Mean Corpuscular Volume 92.6 fL (80.0-100.0); Platelet Count 217 K/uL (130-400); RDW Standard Deviation 41.8 fL (36.4-46.3); Red Blood Count 4.18 M/uL (4.20-5.40); White Blood Count 9.36 K/ul (4.8-10.8)
[2025-06-13 07:57] LABS: Anion Gap 5.0 (3-11); Blood Urea Nitrogen 16.0 mg/dl (6-23); Calcium 8.5 mg/dl (8.6-10.3); Carbon Dioxide 26.0 mmol/L (21-32); Chloride 107.0 mmol/L (98-107); Creatinine Clr Calc Pharmacy 168.4 ml/min; Glucose 140.0 mg/dl (70-99(Fasting)); Potassium 4.0 mmol/L (3.5-5.1); Sodium 138.0 mmol/L (136-145)
[2025-06-13] MEDS ORDERED: REMOVE NICODERM PATCH SCH ×2 (08:59)
[2025-06-13] MEDS ORDERED: NICOTINE 14 MG/24 HR PATCH TD SCH (09:00)
--- NOTE | 2025-06-13 12:08 | Pharmacy Report ---
Pharmacy PK ABX Note - Date of Service June 13, 2025 - Assessment and Plan Assessment Roya is a 49 yo who presented with left lower extremity purulent cellulitis. Left ankle culture obtained on 06/11/25 growing MRSA. Staphylococcus saprophyticus growing in 1 of 4 BC bottles with repeat cultures pending. Foot/ankle MRI from 06/12/25 with no evidence of acute osteomyelitis. Plan Vancomycin * Loading dose: 2000 mg IV x 1 * Maintenance dose: 1500 mg IV every 12 hours * Regimen is predicted to achieve target AUC/MARS of 400-600 mg/L.hr * predicted AUC/MARS at steady state: 543 * Random level ordered for: 06/14 with am labs Pharmacy will continue to follow and will adjust dose/frequency as necessary. Thank you. Pharmacy has transitioned to AUC monitoring for vancomycin. AUC/MARS is the preferred PK/PD target and is associated with decreased risk of nephrotoxicity compared to traditional trough targets.
--- NOTE | 2025-06-13 12:34 | Podiatry Consultation ---
Date of Consultation June 13, 2025 Assessment & Plan (1) Diabetic nephropathy associated with type 2 diabetes mellitus: (2) Type 2 diabetes mellitus: Diabetes mellitus intermediate manager insulin use: unspecified long-term insulin use status Diabetes mellitus complication status: with kidney complications Diabetes mellitus complication detail: with microalbuminuria Qualified Code(s): E11.29 - Type 2 diabetes mellitus with other diabetic kidney complication; R80.9 - Proteinuria, unspecified (3) Ulcer of left lower leg: (4) Cellulitis of left lower extremity: Plan Patient evaluated. Wound cleansed and redressed to the left lateral ankle. MRI and CT results reviewed with concern for possible early osteomyelitis to the heads of the 1st and 5th metatarsal on CT scan and no signs of osteomyelitis on MRI. Clinical correlation with imaging results with no concern for osteomyelitis of the left foot. Foot has no open wounds at present no signs of cellulitis. - No indication for surgical I&D or debridement left leg. - Okay to weight-bear as tolerated in normal shoe gear. - Patient encouraged to elevate left lower extremity 23 hours a day to help manage dependent edema and encourage wound healing. - Recommend Tubigrip to the left lower extremity over wound dressing extending from the base of the toes to the calf. Continue throughout the day okay to remove while sleeping or with limb elevated. - Continue once daily dressing changes to the left lateral leg wound cleansing with normal sterile saline dressing with Aquacel Ag and a dry sterile dressing. - From a foot and ankle standpoint (assuming repeat blood cultures returns negative) okay to resume p.o. antibiotics including doxycycline and Keflex at time of discharge for continued management of cellulitis of the left leg. - Recommend follow-up in the wound center within 2 weeks of discharge. - Okay for discharge from podiatry standpoint Thank for consulting podiatry to aid in the care of this patient. Will continue to follow while she remains in house and recommend follow-up in the wound care center following discharge for continued monitoring. History of Present Illness Reason for Consultation: Left lateral leg ulceration Attending Physician: Rambo Payne MD History of Present Illness Roya is a 49-year-old female who presented to [facility] emergency department on 06/11/2025 with an open ulceration and cellulitis of the left lower extremity. Past medical history significant for type 2 diabetes, tobacco dependence, obesity, hypertension, hyperlipidemia. Denies symptoms of diabetic peripheral neuropathy. Patient reports that she bought a new pair of Winter boots recently and was wearing these boots with ankle socks and had some rubbing from the boot on the lateral aspect of her ankle which initially formed a blister which then became infected and opened with drainage first noticed on 06/10/2025. She denied nausea, vomiting, fever, chills, shortness of breath or chest pain. On presentation to the emergency department wound had purulent drainage patient received 2000 mg IV vancomycin and 2000 mg IV cefepime and was then transitioned to p.o. doxycycline and Keflex. Culture of the left ankle wound positive for MRSA. blood culture 06/11/2025 positive for Staphylococcus saprophyticus. Patient resumed IV vancomycin on 06/12/2025. She is seen resting comfortably today in bedside chair with left lower extremity elevated on hospital bed. Wound dressing is in place with Aquacel Ag and a bordered foam gauze. Erythema to the left leg was marked in the emergency department with purple skin scribe and erythema is receding from these margins. Patient denies pain in the left leg. Allergies Allergy/AdvReac Type Severity Reaction Status Date / Time No Known Allergies Allergy Verified 06/11/25 17:29 Home Medications Medication Instructions Recorded Confirmed Type Auto Titrating CPAP #1 ea 07/23/22 03/16/25 Rx CPAP Supplies #1 ea 07/23/22 03/16/25 Rx blood sugar diagnostic (Accu-Chek #100 ea 07/25/22 03/16/25 Rx SmartView Test Strips) blood-glucose meter (Accu-Chek #1 ea 07/25/22 03/16/25 Rx Guide Glucose Meter) lancets (Accu-Chek Fastclix Lancet #200 ea 07/25/22 03/16/25 Rx Drum) acetaminophen 500 mg capsule 1,000 mg PO Q6H PRN Pain 07/23/23 06/11/25 History cetirizine 10 mg capsule (Zyrtec) 10 mg PO DAILY PRN Allergy Symptoms 03/03/24 06/11/25 History FreeStyle Kwame 3 Sensor #2 ea 06/14/24 03/16/25 Rx (blood-glucose sensor) pen needle, diabetic 31 gauge x #100 ea 08/31/24 03/16/25 Rx 3/16" (Comfort EZ Pen [place]) empagliflozin 25 mg tablet 25 mg PO DAILY 06/11/25 06/11/25 History (Jardiance) fluoxetine 20 mg capsule 20 mg PO DAILY 06/11/25 06/11/25 History lisinopril 10 mg tablet 10 mg PO DAILY 06/11/25 06/11/25 History metformin 1,000 mg tablet 1,000 mg PO BID 06/11/25 06/11/25 History mirabegron 50 mg tablet,extended 50 mg PO DAILY 06/11/25 06/11/25 History release 24 hr propranolol 60 mg capsule,24 60 mg PO DAILY 06/11/25 06/11/25 History hr,extended release rosuvastatin 20 mg tablet 20 mg PO DAILY 06/11/25 06/11/25 History semaglutide 1 mg/dose (4 mg/3 mL) 1 mg subcut WK 06/11/25 06/11/25 History subcutaneous pen injector (Ozempic) Patient History Medical History (Updated 06/13/25 @ 16:35 by Israel Chang DPM) Tendonitis of left rotator cuff Back pain Lumbar radiculopathy, acute Asthma Surgical History H/O wisdom tooth extraction Hx of removal of ovary Family History Mother Breast cancer Cancer H/O: hysterectomy Myocardial infarction Denies family history of Prostate cancer Colorectal cancer Social History Smoking Status: Current every day smoker Tobacco Type: Cigarettes Age Started Using Tobacco: 19; packs per day: 1; Cigarettes Per Day: 1PPD; Second Hand Exposure: Yes; Do You Dip or Chew Tobacco: No; Tobacco Cessation Education Requested by Patient: No Hx Alcohol Use: Yes Alcohol Intake Frequency: Monthly or Less Alcohol Intake Frequency Comment: very social Hx Substance Use: No Preferred Language: [place] Communication Ability: Effective Visual Impairment: Partially Limited Hearing Ability: Normal Insole Tape Stitcher [place] Required: No Beliefs That Will Affect Care: None marital status: Current Living Situation: Spouse Current Living Situation Comment: , mother, two children current occupational status: employed 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 Denies pain in the left leg. Physical Exam Physical Exam: Const: Appears well developed and well nourished. No signs of acute distress present. CV: Extremities: No cyanosis or edema. Capillary refill time is less than 2 seconds all digits of the bilateral foot. Posterior tibial and dorsalis pedis pulses are palpable bilateral. Neuro: Diminished protective sensation bilateral plantar foot. Psych: Mood/Affect: Mood is normal. Affect is normal. Cognition: Orientation is intact to person, place and time. Focused lower extremity musculoskeletal exam: There is a ulceration to the lateral aspect of the left leg with very scant seropurulent drainage to the Aquacel Ag. Erythema receding from previously marked margins the lateral left leg. No lymphangitis or streaking. Wound bed is mixed fibrotic and slough. Wound does not probe or track in any direction. Mild pain on probing of the wound otherwise pain-free at baseline. Left lateral foot is evaluated with signs of mild soft tissue irritation over the lateral fifth metatarsal head but no breakdown in skin or pressure injury at present. Feet are in pristine condition with no significant callosities or signs of local soft tissue infection. Motor function intact. Decreased protective sensation bilateral plantar foot. Results & Data Vital Signs (Past 12 Hours) Vital Signs Temp Pulse Resp BP Pulse Ox O2 Del Method 06/13/25 07:27 36.6 C 74 18 106/69 96 Room Air Laboratory Results Left ankle wound culture 06/11/2025: Staph aureus MRSA Blood culture 06/11/2025: Preliminary: Staphylococcus saprophyticus Blood culture 06/13/2025: Pending Diagnostic Findings MRI left foot 06/12/2025: IMPRESSION: 1. No evidence of acute osteomyelitis. 2. Mild signal changes in the 5th metatarsal head consistent with reactive osteitis. 3. Subcutaneous soft tissue edema without fluid collection or gas. 4. Developing soft tissue pressure lesion adjacent to the 5th metatarsal head. MRI left ankle 06/12/2025: IMPRESSION: 1. No evidence of acute osteomyelitis. 2. Diffuse subcutaneous soft tissue edema consistent with venous insufficiency or cellulitis. 3. Split tear of the peroneus brevis tendon. CT left foot and ankle 06/12/2025: IMPRESSION: Diffuse soft tissue swelling with subcutaneous edema and fluid. No organized/drainable fluid collection is identified. Questionable subtle erosive changes in the heads of the hallux and fifth digit metatarsals abutting soft tissue swelling. In a proper clinical context, early osteomyelitis could be a consideration Small cortical defect in the superior margin of the cuboid that likely represents an age-indeterminate avulsion injury. Recommend correlation with site of pain. PG Care Time/CCT Total # of Minutes Spent Total Time Spent with Patient: Total time spent is greater than 50% in coordination of care (as documented) at patient's floor/unit and/or counseling patient: Coding Level of Care Code 28143 IN/OBS CONSULT LVL 3,45M Diagnoses Diabetic nephropathy associated with type 2 diabetes mellitus E11.21 Type 2 diabetes mellitus with microalbuminuria, unspecified whether intermediate manager insulin use E11.29; R80.9 Diabetes mellitus intermediate manager insulin use: unspecified intermediate manager insulin use status Diabetes mellitus complication status: with kidney complications Diabetes mellitus complication detail: with microalbuminuria Ulcer of left lower leg L97.929 Cellulitis of left lower extremity L03.116
[2025-06-13 15:51] VITALS: RESP 16
--- NOTE | 2025-06-13 15:55 | Hospitalist Progress Note ---
"Date of Service June 13, 2025 Assessment & Plan (1) Failure to thrive in adult: (2) Cellulitis of left lower extremity: (3) Uncontrolled diabetes mellitus with hyperglycemia: (4) Tobacco dependence: (5) SHARON (obstructive sleep apnea): Plan This patient is a 49-year-old female who presented on 06/11 for worsening left ankle swelling/erythema. She denies ambulatory dysfunction or left ankle/foot pain at time of admission. #Left lower extremity cellulitis -Blood cultures with 1 set of gram + clusters, possible contaminant? Patient hemodynamically stable at this time -repeat BC this am -Vancomycin 2000 mg IV + cefepime 2000 IV given in the ED -LLE venous Doppler revealed no evidence of acute DVT -At time of admission, patient is not septic (VSS) -No leukocytosis; afebrile -CRP mildly elevated at 1.67, trend -no hx of MRSA infection -CT of left foot/ankle w/wo contrast with possible early osteo -d/c oral Keflex, oral Doxy -IV Vanco -MRI left foot/ankle with no signs of osteo, developing soft tissue pressure lesion adjacent to 5th metatarsal head -Podiatry consult with rec to elevate LLE 23 hours day/tubigrip daily, once daily dressing change with romina and dry sterile dressing, f/u with wound center in 2w #Failure to thrive -Patient reports she stopped taking all medications in April 2025 due to insurance/financial issues Case management consult appreciated for financial coordinator/resources, patient suppled with multiple medication vouchers for d/c #T2DM -Glucose elevated at 210 on arrival -Reinitiated metformin on admission, now held in setting of CT IV contrast -A1c 6.3 -breastfeeding educator consult appreciated #Tobacco dependence -Current everyday tobacco cigarette smoker; half PPD -Continue to encourage cessation -nicotine patch #HTN -hold ACEi in setting of recent CT with IV contrast #HLD -rosuvastatin #Obsessive thinking | attention deficit -fluoxetine #H/o SHARON Non-compliance with home CPAP as patient reports she does not tolerate DVT prophylaxis: up ad giovanni Diet: CC Disposition: pending repeat BC Admission and Anticipated Discharge Date Admission Date: June 13, 2025 Subjective Mild c/o left foot/ankle pain. Left foot with noted swelling. No redness beyond original circling. Denies fever, chills. Review of Systems Review of Systems: All systems reviewed & are unremarkable except as noted in Subjective Physical Exam Physical Exam: GENERAL APPEARANCE: A&O. Sitting comfortably in bed. NAD. SKIN: Normal color without rashes or lesions. Normal turgor. HEENT: Head AT/NC. Buccal mucosa is moist and pink. NECK: No jugular venous distention. No thyroid enlargement. There is no lymphadenopathy. HEART: RRR without m/g/r. LUNGS: Normal inspiratory effort. CTA without w/r/r. ABDOMEN: No guarding or rigidity. Normoactive BS in all four quadrants. Abdomen soft and NT. MSK: No bony gross/deformities throughout. ROM intact. EXTREMITIES: No edema, No peripheral cyanosis. Left lateral aspect of ankle with dime-sized scabbed area with surrounding erythema and swelling extending into left foot. Circled marking to area has not extended beyond initial marking on admission. Neuro: CN 2-12 grossly intact. No focal neuro deficits PSYCHIATRIC: Normal affect. Eye contact is good. Speech is normal rate and content. Responses are appropriate. Results & Data Results & Data Vital Signs (Past 12 Hours) Vital Signs Temp Pulse Resp BP Pulse Ox O2 Del Method 06/13/25 15:51 37.7 C H 80 16 117/72 96 Room Air 06/13/25 07:27 36.6 C 74 18 106/69 96 Room Air Laboratory Results Labs reviewed: CBC, BMP, CRP PG Care Time/CCT Total # of Minutes Spent Total Time Spent with Patient: Total time spent is greater than 50% in coordination of care (as documented) at patient's floor/unit and/or counseling patient: Coding Level of Care Code 23357 SUB INP/OBS CARE 2/35MIN Diagnoses Failure to thrive in adult R62.7 Cellulitis of left lower extremity L03.116 Uncontrolled diabetes mellitus with hyperglycemia E11.65 Tobacco dependence F17.200 SHARON (obstructive sleep apnea) G47.33"
[2025-06-14] MEDS: VANCOMYCIN LEVEL ONE (06:40)
[2025-06-14 07:11] VITALS: BP 110/69; PULSE 70; TEMP 98.6; O2SAT 99
[2025-06-14 07:11] LABS: Hematocrit (blood only) 37.8 % (37.0-47.0); Hemoglobin 13.2 g/dL (12.0-16.0); Immature Granulocytes # (auto) 0.07 K/uL (0.01-0.20); Immature Granulocytes % (auto) 0.8 %; Mean Corpuscular Hemoglobin 31.7 pg (25.0-34.0); Mean Corpuscular Volume 90.9 fL (80.0-100.0); Platelet Count 222 K/uL (130-400); RDW Standard Deviation 40.8 fL (36.4-46.3); Red Blood Count 4.16 M/uL (4.20-5.40); White Blood Count 8.81 K/ul (4.8-10.8)
[2025-06-14 07:44] LABS: Anion Gap 7 (3-11); Blood Urea Nitrogen 13 mg/dl (6-23); Calcium 8.4 mg/dl (8.6-10.3); Carbon Dioxide 24 mmol/L (21-32); Chloride 108 mmol/L (98-107); Creatinine Clr Calc Pharmacy 184.9 ml/min; Glucose 160 mg/dl (70-99(Fasting)); Potassium 4.0 mmol/L (3.5-5.1); Sodium 139 mmol/L (136-145)
--- NOTE | 2025-06-14 08:47 | Pharmacy Report ---
Pharmacy PK ABX Note - Date of Service June 14, 2025 - Assessment and Plan Assessment 06/14: * Random vancomycin level this AM was 5.9 mcg/ml - will increase to 1500 mg ivq 8 hours to achieve goal AUC/MARS. Repeat bc still pending. 06/13: * Roya is a 49 yo who presented with left lower extremity purulent cellulitis. * Left ankle culture obtained on 06/11/25 growing MRSA. Staphylococcus saprophyticus growing in 1 of 4 BC bottles with repeat cultures pending. * Foot/ankle MRI from 06/12/25 with no evidence of acute osteomyelitis. Plan Vancomycin * Increase to 1500 mg iv q 8 hours * Will recheck level in next 2-3 days Pharmacy will continue to follow and will adjust dose/frequency as necessary. Thank you. Pharmacy has transitioned to AUC monitoring for vancomycin. AUC/MARS is the preferred PK/PD target and is associated with decreased risk of nephrotoxicity compared to traditional trough targets.
[2025-06-14] MEDS ORDERED: VANCOMYCIN HCL 1,500 MG in SODIUM CHLORIDE 0.9% 500 ML IV SCH (14:00)
--- NOTE | 2025-06-14 17:35 | Discharge Summary ---
Discharge Summary Date of Service June 14, 2025 Principal Dx & Hospital Course #1 = Principal Diagnosis (1) Failure to thrive in adult: (2) Cellulitis of left lower extremity: (3) Uncontrolled diabetes mellitus with hyperglycemia: (4) Tobacco dependence: (5) SHARON (obstructive sleep apnea): Plan This patient is a 49-year-old female who presented on 06/11 for worsening left ankle swelling/erythema. She denies ambulatory dysfunction or left ankle/foot pain at time of admission. #Left lower extremity cellulitis -Blood cultures with 1 set of gram + clusters, possible contaminant? Patient hemodynamically stable at this time with no clinical symptoms of bacteremia -repeat BCs on 06/13/25 -Vancomycin 2000 mg IV + cefepime 2000 IV given in the ED -LLE venous Doppler revealed no evidence of acute DVT -At time of admission, patient is not septic (VSS) -No leukocytosis; afebrile -CRP mildly elevated at 1.67, <0.50 -no hx of MRSA infection -CT of left foot/ankle w/wo contrast with possible early osteo -d/c'ed oral Keflex, oral Doxy -IV Vanco during admission -CT of left foot/ankle w/wo contrast with possible early osteo -MRI left foot/ankle with no signs of osteo, developing soft tissue pressure lesion adjacent to 5th metatarsal head -Podiatry consult with rec to elevate LLE 23 hours day/tubigrip daily, once daily dressing change with romina and dry sterile dressing, f/u with wound center in 2w -2nd set of BC still pending on d/c, informed patient this will be followed up -d/c on oral Clindamycin as her wound culture was with MRSA #Failure to thrive -Patient reports she stopped taking all medications in April 2025 due to insurance/financial issues, patient provided with information per for assistance regarding insurance -patient supplied Metformin and Lisinopril prescriptions for 30 day supply for discharge #T2DM -Glucose elevated at 210 on arrival -Reinitiated metformin on admission, now held in setting of CT IV contrast -A1c 6.3 -special education paraeducator consult with rec to re-iniaitate Metformin-->prescription supplied to patient #Tobacco dependence -Current everyday tobacco cigarette smoker; half PPD -Continue to encourage cessation -nicotine patch #HTN -resume ACEi #HLD -rosuvastatin #Obsessive thinking | attention deficit -fluoxetine #H/o SHARON Non-compliance with home CPAP as patient reports she does not tolerate DVT prophylaxis: up ad giovanni Diet: CC Disposition: d/c home with arrangements for 2 week wound clinic follow up Admission HPI Per Admitting Provider Mrs. Rogers is a 49-year-old female with PMH of T2DM, obsessive thinking, attention deficit, tobacco dependence, obesity, HTN, and HLD. She presented on 06/11 for swelling and redness in her left ankle x 5 days. Patient's redness and swelling originally began on Wednesday 06/06 and has progressively worsened. She denies any pain in her left ankle. She does not have difficulty walking on her left ankle. No prior history of DVTs, not on blood thinners. She reports that a lesion developed on her lateral malleolus that later burst on Saturday 06/09; at that time there was some puslike drainage, but since that time she has only had a weeping/clear drainage. Additionally, she denies prior history of MRSA infections. Patient denies any pain, or redness/streaking going up her leg. Of note, patient is a diabetic but has not been taking her medications over the past 2 months due to insurance/financial issues. Patient is a current everyday tobacco cigarette smoker; half PPD. Patient denies any recent alcohol use. NKDA. Patient has not been trialed on oral antibiotics for her ankle. She does have a history of boils on her body for which she is taking cefdinir and doxycycline, and reports no adverse reactions to taking these medications. Additionally, patient has a CPAP at home, but does not use it as she does not tolerate it. Vital stable at time of admission consult: 122/71, 77 bpm, 96% on room air, temperature 36.8 C. ED course: Vancomycin 2000 mg IV Cefepime 2000 mg IV ROS: Patient endorses redness/swelling in the left ankle Patient denies fever, chills, night-sweats, chest pain, SOB, abdominal pain, N/V/D, pain in the left ankle, or numbness/tingling in the left foot. Discharge Exam GENERAL APPEARANCE: A&O. Sitting comfortably in bed. NAD. SKIN: Normal color without rashes or lesions. Normal turgor. HEENT: Head AT/NC. Buccal mucosa is moist and pink. NECK: No jugular venous distention. No thyroid enlargement. There is no lymphadenopathy. HEART: RRR without m/g/r. LUNGS: Normal inspiratory effort. CTA without w/r/r. ABDOMEN: No guarding or rigidity. Normoactive BS in all four quadrants. Abdomen soft and NT. MSK: No bony gross/deformities throughout. ROM intact. EXTREMITIES: No edema, No peripheral cyanosis. Left lateral aspect of ankle with dime-sized scabbed area with surrounding erythema and swelling extending into left foot. Circled marking to area has not extended beyond initial marking on admission. Neuro: CN 2-12 grossly intact. No focal neuro deficits PSYCHIATRIC: Normal affect. Eye contact is good. Speech is normal rate and c ontent. Responses are appropriate. Discharge Plan Discharge Items Patient Disposition: Home - Self-Care Reason For Visit: LLE CELLULITIS, UNABLE TO AFFORD DM MEDS Discharge Diagnosis: LLE cellulitis Condition on Discharge: Good Activity: Resume your previous activity Weightbearing: Full weightbearing Non-emergency contact: Primary Care Provider Call non-emergency contact if: you have any medication questions, your symptoms worsen, your pain is not controlled, your pain is worsening and your temperature is above 101 Follow-up/Referrals: gJ Anna DO [Primary Care Provider] - 06/20/25 11:00 am Diet: Carb Consistent or DM2 Addtl Attending Provider Instructions: Roya, You were hospitalized for an infection in your left foot. You were given IV antibiotics while you were to cover the infection and will need additional oral antibiotic to take at home. It is important you monitor the response to your infection with antibiotics as you are diabetic. As you have been without insurance two of routine medications (Metformin and Lisinopril) will be supplied to you for 30 days. You reported having additional medication supply at home. Please make sure you take your Metformin routinely. A prescription for Clindamycin has been supplied to you to take 4 times a day for the next ten days to fully treat the infection in your left foot and ankle. Elevate your foot as much as possible and keep the scabbed area covered with a bandage. We are arranging an appointment for you with wound care for follow up in 2 weeks. You have been supplied with information regarding help as you are without insurance. Your second set of blood cultures are still pending and we will notify you if there is a concern with the results. Medications: Your medication list has been reviewed and reconciled upon discharge to ensure accuracy and continuity of care. An updated list of all your medications is included with your hospital discharge paperwork. Please review this list closely, and make note of any changes. Take your medications as instructed; do not skip a dose of your medicines. Make sure all of your doctors know every medicine you are taking (including hfrf-orh-qzwqwsq medicines, vitamins, and supplements). Call your primary care provider before taking any new medicines (including over- the-counter medicines, vitamins, and supplements), because some of these may interact with your current medications, or may make your symptoms worse. Tell your primary care provider if you cannot afford your medications. Activity: You can do normal everyday activities as your body allows. Take rest breaks if you feel tired. Do not overexert. Stop activity if you have pain, shortness of breath or feel dizzy. Follow-up appointments: Make an appointment with your primary care physician within one week of discharge. A copy of this summary will be sent to them. Every time you see your primary care physician, or any other doctor, bring your medication list, and a list of questions. CONTACT YOUR PRIMARY CARE PROVIDER if you experience any of the following: Shortness of breath or difficulty breathing Fevers or chills Feeling tired with normal activity or experiencing dizziness or fainting Difficulty following your treatment plan, or difficulty taking medications CALL 911 OR GO TO THE EMERGENCY DEPARTMENT if you experience any of the following: Severe abdominal pain or nausea/vomiting Severe chest pain, or chest pain that radiates (moves) to your jaw or arm Sudden, severe shortness of breath or difficulty breathing Thank you for allowing us to participate in your care. Pending Studies at Discharge: Yes Studies:: Blood cultures Stand-Alone Forms: [facility], Smoking Cessation Medications and DC Order Prescriptions: New lisinopril 10 mg tablet 10 mg PO DAILY Qty: 30 0RF clindamycin HCl 300 mg capsule 300 mg PO Q6H 10 Days Qty: 40 0RF metformin 1,000 mg tablet 1,000 mg PO BID Qty: 60 0RF Continued (DME) CPAP Supplies Misc See Rx Instructions .Route Qty: 1 0RF Rx Instructions: As directed (DME) Auto Titrating CPAP Misc See Rx Instructions .ROUTE .MEDSUPPLY Qty: 1 0RF Rx Instructions: As directed Nightly (DME) FreeStyle Kwame 3 Sensor Device See Rx Instructions .Route Qty: 2 11RF Rx Instructions: change sensor every 14 days acetaminophen 500 mg capsule 1,000 mg PO Q6H PRN (Reason: Pain) (DME) blood-glucose meter [Accu-Chek Guide Glucose Meter] Misc See Rx Instructions .Route Qty: 1 0RF Rx Instructions: Testing BS daily (DME) lancets [Accu-Chek Fastclix Lancet Drum] Misc See Rx Instructions .Route Qty: 200 0RF Rx Instructions: testing BS daily (DME) Accu-Chek SmartView Test Strip Strip See Rx Instructions .Route Qty: 100 3RF Rx Instructions: Testing BS daily Zyrtec 10 mg capsule 10 mg PO DAILY PRN (Reason: Allergy Symptoms) (DME) pen needle, diabetic [Comfort EZ Pen [place]] 31 gauge x 3/16" needle See Rx Instructions .Route Qty: 100 3RF Rx Instructions: As directed propranolol 60 mg capsule,extended release 24 hr 60 mg PO DAILY Patient Comments: 06/11- hasnt taking meds since March due to insurance metformin 1,000 mg tablet 1,000 mg PO BID Patient Comments: 06/11- hasnt taking meds since March due to insurance lisinopril 10 mg tablet 10 mg PO DAILY Patient Comments: 06/11- hasnt taking meds since March due to insurance fluoxetine 20 mg capsule 20 mg PO DAILY Patient Comments: 06/11- hasnt taking meds since March due to insurance rosuvastatin 20 mg tablet 20 mg PO DAILY Patient Comments: 06/11- hasnt taking meds since March due to insurance mirabegron 50 mg tablet extended release 24 hr 50 mg PO DAILY Patient Comments: 06/11- hasnt taking meds since March due to insurance Jardiance 25 mg tablet 25 mg PO DAILY Patient Comments: 06/11- hasnt taking meds since March due to insurance Ozempic 1 mg/dose (4 mg/3 mL) pen injector 1 mg SUBCUT WK Patient Comments: 06/11-hasnt taking meds since March due to no insurance Discharge Orders: Discharge Order (Routine); Ordered 06/14/25 Ordered By: Ava Deal Admission Data Admit Date/Time: 06/13/25 09:15 Attending Provider: Tram Kirk Admit Provider: Rambo Payne Primary Care Provider: Jg Anna Other Providers: Odin Damico; Israel Chang Other Interventions: Discharge Summary Assessment (RN) Last Done: 06/14/25 12:06 Hospital Stay Data Consultations 06/11/25 16:50 ED Decision to Admit Stat 06/13/25 09:15 Consult Podiatry Routine Diagnostic Imagining Performed 06/11/25 14:34 US venous doppler LE LT Stat 06/12/25 14:43 CT ankle LT wo/w con Routine CT foot LT wo/w con Urgent 06/12/25 18:34 MRI Ankle [MR ankle LT wo con] Routine MRI Foot [MR foot LT w/o con] Routine Pending Results Patient Have Any Pending Studies at Discharge: Yes Discharge Instructions Given to Patient (Per Discharging Provider) Roya, You were hospitalized for an infection in your left foot. You were given IV antibiotics while you were to cover the infection and will need additional oral antibiotic to take at home. It is important you monitor the response to your infection with antibiotics as you are diabetic. As you have been without insurance two of routine medications (Metformin and Lisinopril) will be supplied to you for 30 days. You reported having additional medication supply at home. Please make sure you take your Metformin routinely. A prescription for Clindamycin has been supplied to you to take 4 times a day for the next ten days to fully treat the infection in your left foot and ankle. Elevate your foot as much as possible and keep the scabbed area covered with a bandage. We are arranging an appointment for you with wound care for follow up in 2 weeks. You have been supplied with information regarding help as you are without insurance. Your second set of blood cultures are still pending and we will notify you if there is a concern with the results. Medications: Your medication list has been reviewed and reconciled upon discharge to ensure accuracy and continuity of care. An updated list of all your medications is included with your hospital discharge paperwork. Please review this list closely, and make note of any changes. Take your medications as instructed; do not skip a dose of your medicines. Make sure all of your doctors know every medicine you are taking (including otfz-qbn-yeyynkg medicines, vitamins, and supplements). Call your primary care provider before taking any new medicines (including over- the-counter medicines, vitamins, and supplements), because some of these may interact with your current medications, or may make your symptoms worse. Tell your primary care provider if you cannot afford your medications. Activity: You can do normal everyday activities as your body allows. Take rest breaks if you feel tired. Do not overexert. Stop activity if you have pain, shortness of breath or feel dizzy. Follow-up appointments: Make an appointment with your primary care physician within one week of discharge. A copy of this summary will be sent to them. Every time you see your primary care physician, or any other doctor, bring your medication list, and a list of questions. CONTACT YOUR PRIMARY CARE PROVIDER if you experience any of the following: Shortness of breath or difficulty breathing Fevers or chills Feeling tired with normal activity or experiencing dizziness or fainting Difficulty following your treatment plan, or difficulty taking medications CALL 911 OR GO TO THE EMERGENCY DEPARTMENT if you experience any of the following: Severe abdominal pain or nausea/vomiting Severe chest pain, or chest pain that radiates (moves) to your jaw or arm Sudden, severe shortness of breath or difficulty breathing Thank you for allowing us to participate in your care. Total Time Total Time Spent Total Time Spent (In Minutes): 50 minutes total spent in time orchestrating discharge for patient including printing out Good Rx prescriptions for financial assistance and collaboration with case management Coding Level of Care Code 13097 INP/OBS DISCH >30 MIN Diagnoses Failure to thrive in adult R62.7 Cellulitis of left lower extremity L03.116 Uncontrolled diabetes mellitus with hyperglycemia E11.65 Tobacco dependence F17.200 SHARON (obstructive sleep apnea) G47.33
--- NOTE | 2025-06-17 07:42 | Electrocardiogram Report ---
Test Reason : Blood Pressure : */* mmHG Vent. Rate : 78 BPM Atrial Rate : 78 BPM P-R Int : 172 ms QRS Dur : 72 ms QT Int : 378 ms P-R-T Axes : 55 -9 16 degrees QTcB Int : 430 ms Normal sinus rhythm Low voltage QRS Borderline ECG When compared with ECG of 01-Nov-2013 19:09, No significant change Confirmed by Jose Tobin ([id number]) on 06/17/2025 7:42:06 AM Referred By: REFERRED SELF Confirmed By: Jose Tobin
== END 2025-06-14 13:17 | disposition home or self-care (01) | DRG 603 ==
LOC: 3N 12:58 → ED 12:58 → SUATTDRO 20:08 → 3N 20:44 → SUATTDRO 06-13 09:15